=== PATIENT | male | born 1980 | race Caucasian/White ===

== ENCOUNTER 2018-12-03 19:24 | Emergency (ER) | payer OTHER ==
[~2018-12-03] VITALS: Ht 188 cm; Wt 90.7 kg
[~2018-12-03 19:24] MED LIST: BACL10 PO; DIAZ10 PO; DIAZ5 PO; HYDACE10B PO; HYDACE5 PO; HYDACE5325 PO; HYDCHL25 PO; IBUP800 PO; LISI20 PO; LOSHYD100 PO; MELO7.5 PO; META800 PO; NAPR500 PO; OXYACE5T PO; PRED20 PO; Percocet 5-3251 EACH PO
[2018-12-03] MEDS ORDERED: IBUP600 PO (20:41)
[2018-12-24] MEDS ORDERED: LOSARTAN-HCTZ1 EAC1 PO (12:58)
== END 2018-12-03 21:05 | disposition home or self-care (01) ==
LOC: ER 19:24
DX: S63.501A Unspecified sprain of right wrist, initial encounter (principal); S20.212A Contusion of left front wall of thorax, initial encounter; I10 Essential (primary) hypertension; F17.200 Nicotine dependence, unspecified, uncomplicated; Z88.5 Allergy status to narcotic agent; Z79.899 Other long term (current) drug therapy; V19.9XXA Pedal cyclist (driver) (passenger) injured in unspecified traffic accident, initial encounter
CPT/HCPCS: 71046; 73110; 96372; 99283-25; J1885

== ENCOUNTER 2018-12-06 22:47 | Emergency (ER) | payer OTHER ==
[~2018-12-06] VITALS: Ht 188 cm; Wt 90.7 kg
[~2018-12-06 22:47] MED LIST changes: +IBUP600 PO
[2018-12-06 23:04] LABS: BASOPHILS ABSOLUTE AUTO 0.03 K/mm3 (0.00-0.23); BASOPHILS PERCENT AUTO 0 % (0-2); EOSINOPHILS ABSOLUTE AUTO 0.17 K/mm3 (0.00-0.68); EOSINOPHILS PERCENT AUTO 2 % (0-6); IMMATURE GRAN ABSOLUTE AUTO 0.04 K/mm3 (0.00-0.10); IMMATURE GRAN PERCENT AUTO 1 % (0-1); LYMPHOCYTES PERCENT AUTO 31 % (21-46); MONOCYTES ABSOLUTE AUTO 0.53 K/mm3 (0.16-1.47); MONOCYTES PERCENT AUTO 6 % (4-13); Mean Corpuscular HGB 31.1 pg (26.0-34.0); Mean Corpuscular Volume 89 fL (80-100); Mean Platelet Volume 9.7 fL (9.1-12.4); NEUTROPHILS ABSOLUTE AUTO 5.05 K/mm3 (1.96-9.15); NEUTROPHILS PERCENT AUTO 60 % (41-73); Platelet Count 267 K/mm3 (150-400); RDW Coefficient Variation 11.9 % (11.7-14.2); RDW Standard Deviation 38.4 fL (35.1-46.3); White Blood Cell Count 8.42 K/mm3 (4.00-11.30)
[2018-12-06 23:20] LABS: Alanine Aminotransfer (ALT/SGP 44 U/L (12-78); Albumin, Blood 3.7 g/dL (3.4-5.0); Albumin/Globulin Ratio 0.9 (0.8-1.8); Alk Phos 68 U/L (50-136); Anion Gap 7 mmol/L (6-16); Aspartate Aminotrans (AST/SGOT 28 U/L (12-37); Bilirubin, Total 0.4 mg/dL (0.1-1.0); Blood Urea Nitrogen 15 mg/dL (8-24); Bun/Creatinine Ratio 22.5 (12.0-20.0); CO2, Blood 30 mmol/L (21-32); Calcium, Blood 8.6 mg/dL (8.5-10.1); Chloride, Blood 102 mmol/L (98-108); Creatinine, Blood 0.67 mg/dL (0.60-1.20); Ethanol (Alcohol), Blood, Med <3 mg/dL; Globulin, Blood 4.3 g/dL (2.2-4.0); Glomerular Filtration Rate >60 (60-); Glucose, Blood 159 mg/dL (70-99); Potassium, Blood 3.8 mmol/L (3.5-5.5); Sodium, Blood 139 mmol/L (136-145)
[2018-12-06 23:23] LABS: International Normalized Ratio 0.99; Prothrombin Time Results 10.5 Sec (9.7-11.5)
[2018-12-07] MEDS ORDERED: Norco 5-325 Ta1 EACH PO (00:30)
[2018-12-07] MEDS ORDERED: IBUP600 PO (00:30)
[2018-12-07] MEDS ORDERED: CEPH500 PO (00:30)
[2018-12-24] MEDS ORDERED: LOSARTAN-HCTZ1 EAC1 PO (12:58)
== END 2018-12-07 00:49 | disposition home or self-care (01) ==
LOC: ER 22:47
PROVIDERS: Emergency Medicine
DX: S02.2XXB Fracture of nasal bones, initial encounter for open fracture (principal); S22.31XA Fracture of one rib, right side, initial encounter for closed fracture; S42.021A Displaced fracture of shaft of right clavicle, initial encounter for closed fracture; S01.81XA Laceration without foreign body of other part of head, initial encounter; S80.212A Abrasion, left knee, initial encounter; S80.211A Abrasion, right knee, initial encounter; S60.511A Abrasion of right hand, initial encounter; I10 Essential (primary) hypertension; F17.200 Nicotine dependence, unspecified, uncomplicated; Z88.8 Allergy status to other drugs, medicaments and biological substances; V19.9XXA Pedal cyclist (driver) (passenger) injured in unspecified traffic accident, initial encounter
CPT/HCPCS: 12014; 70450; 70486; 71045; 72125; 73030; 80053; 83690; 85025; 85610; 85730; 86850; 86900; 86901; 90471; 90714; 96374-59; 99284-25; A9270; G0480; J3010

== ENCOUNTER 2018-12-25 06:14 | Day surgery (SDC) | payer OTHER ==
[~2018-12-25] VITALS: Ht 185.4 cm; Wt 84.5 kg
[~2018-12-25 06:14] MED LIST changes: +CEPH500 PO; +LOSARTAN-HCTZ1 EAC1 PO; +Norco 5-325 Ta1 EACH PO
--- NOTE | 2018-12-25 11:42 | NUR ---
12/25/18 Nolan2 Rossy Stevens PATIENT AGGITATED, REPEATEDLY STATING THAT THE PAIN MEDS PRESCRIBED WERE NOT STRONG ENOUGH, NOT ENOUGH PILLS.
== END 2018-12-25 11:36 | disposition home or self-care (01) ==
LOC: ORSCSDS 06:14
PROVIDERS: Orthopaedic Surgery
PROC: 0PS904Z Reposition Right Clavicle with Internal Fixation Device, Open Approach (ICD-10-PCS; principal; 2018-12-25 07:30)
DX: S42.021A Displaced fracture of shaft of right clavicle, initial encounter for closed fracture (principal); F17.210 Nicotine dependence, cigarettes, uncomplicated; I10 Essential (primary) hypertension; Z87.891 Personal history of nicotine dependence
CPT/HCPCS: C1713; J0171; J0690; J1100; J1885; J2250; J2270; J2370; J2405; J2704; J3010; J7120

== ENCOUNTER 2020-10-30 13:03 | Emergency (ER) | payer OTHER ==
[~2020-10-30] VITALS: Ht 188 cm; Wt 117.9 kg
[~2020-10-30 13:03] MED LIST changes: +Bactrim Ds Tab1 EACH PO
[2020-10-30 13:35] LABS: BASOPHILS ABSOLUTE AUTO 0.07 K/mm3 (0.00-0.23); BASOPHILS PERCENT AUTO 1 % (0-2); EOSINOPHILS ABSOLUTE AUTO 0.21 K/mm3 (0.00-0.68); EOSINOPHILS PERCENT AUTO 2 % (0-6); Hematocrit 44.5 % (37.0-53.0); Hemoglobin 14.9 g/dL (13.5-17.5); IMMATURE GRAN ABSOLUTE AUTO 0.03 K/mm3 (0.00-0.10); IMMATURE GRAN PERCENT AUTO 0 % (0-1); LYMPHOCYTES PERCENT AUTO 37 % (21-46); MONOCYTES ABSOLUTE AUTO 0.79 K/mm3 (0.16-1.47); MONOCYTES PERCENT AUTO 8 % (4-13); Mean Corpuscular HGB 29.4 pg (26.0-34.0); Mean Corpuscular HGB Conc 33.5 g/dL (31.5-36.5); Mean Corpuscular Volume 88 fL (80-100); Mean Platelet Volume 10.3 fL (9.1-12.4); NEUTROPHILS ABSOLUTE AUTO 4.83 K/mm3 (1.96-9.15); NEUTROPHILS PERCENT AUTO 51 % (41-73); Platelet Count 243 K/mm3 (150-400); RDW Coefficient Variation 12.4 % (11.7-14.2); RDW Standard Deviation 39.8 fL (35.1-46.3); Red Blood Cell Count 5.06 M/mm3 (4.30-5.90); White Blood Cell Count 9.43 K/mm3 (4.00-11.30)
[2020-10-30 13:42] LABS: Alanine Aminotransfer (ALT/SGP 61 U/L (12-78); Albumin, Blood 3.8 g/dL (3.4-5.0); Albumin/Globulin Ratio 0.8 (0.8-1.8); Alk Phos 96 U/L (50-136); Anion Gap 2 mmol/L (6-16); Aspartate Aminotrans (AST/SGOT 37 U/L (12-37); Bilirubin, Total 0.5 mg/dL (0.1-1.0); Blood Urea Nitrogen 14 mg/dL (8-24); Bun/Creatinine Ratio 20.8 (12.0-20.0); CO2, Blood 29 mmol/L (21-32); Calcium, Blood 9.2 mg/dL (8.5-10.1); Chloride, Blood 106 mmol/L (98-108); Creatinine, Blood 0.67 mg/dL (0.60-1.20); Ethanol (Alcohol), Blood, Med <3 mg/dL; Glomerular Filtration Rate >60 (60-); Glucose, Blood 108 mg/dL (70-99); Potassium, Blood 3.7 mmol/L (3.5-5.5); Salicylate <1.7 mg/dL (2.8-20.0); Sodium, Blood 137 mmol/L (136-145); Total Protein, Blood 8.8 g/dL (6.4-8.2)
[2020-10-30 14:00] LABS: Acetaminophen, Random <2.0 ug/mL (10.0-30.0)
[2020-10-30] MEDS ORDERED: NARCAN4 M1 (14:55)
== END 2020-10-30 15:15 | disposition home or self-care (01) ==
LOC: ER 13:03
PROVIDERS: Emergency Medicine
DX: T40.601A Poisoning by unspecified narcotics, accidental (unintentional), initial encounter (principal); I10 Essential (primary) hypertension; F17.210 Nicotine dependence, cigarettes, uncomplicated; Z88.8 Allergy status to other drugs, medicaments and biological substances
CPT/HCPCS: 80053; 85025; 93005; 93010; 96374; 99285-25; A9270; G0480; J2405

== ENCOUNTER → 2024-04-19 | Outpatient (CLI) | payer OTHER ==
[~2024-04-19] MED LIST changes: +ACET500 PO; +BACTRIM DS TAB1 EAC1 PO; +IBUP400 PO; +NARCAN4 M1; +OXYC5 PO
[2024-04-19 13:35] LABS: BASOPHILS ABSOLUTE AUTO 0.07 K/mm3 (0.00-0.23); BASOPHILS PERCENT AUTO 1 % (0-2); EOSINOPHILS ABSOLUTE AUTO 0.04 K/mm3 (0.00-0.68); EOSINOPHILS PERCENT AUTO 0 % (0-6); Hematocrit 41.2 % (37.0-53.0); Hemoglobin 14.5 g/dL (13.5-17.5); IMMATURE GRAN ABSOLUTE AUTO 0.04 K/mm3 (0.00-0.10); IMMATURE GRAN PERCENT AUTO 0 % (0-1); LYMPHOCYTES ABSOLUTE AUTO 3.52 K/mm3 (0.84-5.20); LYMPHOCYTES PERCENT AUTO 27 % (21-46); MONOCYTES ABSOLUTE AUTO 1.16 K/mm3 (0.16-1.47); MONOCYTES PERCENT AUTO 9 % (4-13); Mean Corpuscular HGB 30.8 pg (26.0-34.0); Mean Corpuscular HGB Conc 35.2 g/dL (31.5-36.5); Mean Corpuscular Volume 88 fL (80-100); Mean Platelet Volume 10.4 fL (9.1-12.4); NEUTROPHILS ABSOLUTE AUTO 8.46 K/mm3 (1.96-9.15); NEUTROPHILS PERCENT AUTO 64 % (41-73); Platelet Count 238 K/mm3 (150-400); RDW Coefficient Variation 12.1 % (11.7-14.2); RDW Standard Deviation 38.5 fL (35.1-46.3); Red Blood Cell Count 4.71 M/mm3 (4.30-5.90); White Blood Cell Count 13.29 K/mm3 (4.00-11.30)
[2024-04-19 13:50] LABS: Albumin, Blood 4.2 g/dL (3.4-5.0); Albumin/Globulin Ratio 0.9 (0.8-1.8); Bilirubin, Total 1.2 mg/dL (0.1-1.0); Creatinine, Blood 1.21 mg/dL (0.60-1.20); Globulin, Blood 4.8 g/dL (2.2-4.0); Potassium, Blood 3.3 mmol/L (3.5-5.5)
== END | disposition home or self-care (01) ==
LOC: LAB 13:31 → LAB SHORT 13:31
PROVIDERS: Physician Assistant
DX: R10.9 Unspecified abdominal pain (principal)
CPT/HCPCS: 80053; 85025